=== PATIENT | female | born 1980 | race Caucasian/White ===

== ENCOUNTER 2017-06-21 21:49 | Emergency (ER) | payer OTHER ==
[~2017-06-21] VITALS: Ht 175.3 cm; Wt 142.9 kg
[~2017-06-21 21:49] MED LIST: AZIT250 PO; Allegra-D 24 H1 EACH PO; Augmentin 875-1 EACH PO; FLUT44OIA; Flonase 0.05% N16 GM; Flovent Disku100 MCG IH; HYDR1TAB94 PO; IBUP800 PO; LOSA50 PO; MONT10T PO; OXYACE5T PO; Sprintec1 EACH PO
[2017-06-21] MEDS ORDERED: BENZ100A PO (22:21)
[2017-12-31] MEDS ORDERED: Flonase 0.05% N16 GM (11:03)
[2017-12-31] MEDS ORDERED: ACIDOPHILUS1 EAC2 (11:04)
[2017-12-31] MEDS ORDERED: VITAMIN D35000 UNIT (11:04)
[2017-12-31] MEDS ORDERED: ALBU90OI (11:04)
[2017-12-31] MEDS ORDERED: Multivitamin1 EAC1 (11:05)
[2017-12-31] MEDS ORDERED: Ferrous Sulfat324 MG (11:05)
== END 2017-06-21 22:25 | disposition home or self-care (01) ==
LOC: ER 21:49
DX: J06.9 Acute upper respiratory infection, unspecified (principal); I10 Essential (primary) hypertension; Z91.013 Allergy to seafood; Z88.8 Allergy status to other drugs, medicaments and biological substances; Z79.899 Other long term (current) drug therapy; Z87.891 Personal history of nicotine dependence
CPT/HCPCS: 99282

== ENCOUNTER → 2017-08-21 | Outpatient (CLI) | payer OTHER ==
[~2017-08-21] MED LIST changes: +ACIDOPHILUS1 EAC2; +ALBU90OI; +BENZ100A PO; +Ferrous Sulfat324 MG; +Flovent 110 MCG12 GM INH; +Lomotil Tablet1 EACH PO; +Multivitamin1 EAC1; +Pepcid40 MG PO; +VITAMIN D35000 UNIT; +Zofran Odt4 MG SL
[2017-08-23 13:55] LABS: HPV Genotype 16 Not Detected (NOTDET); HPV Genotype 18 Not Detected (NOTDET)
[2017-08-27 16:31] LABS: HPV High Risk Other Not Detected (NOTDET)
== END | disposition home or self-care (01) ==
LOC: LAB 15:22
PROVIDERS: Obstetrics & Gynecology
DX: Z01.419 Encounter for gynecological examination (general) (routine) without abnormal findings (principal)
CPT/HCPCS: 87624; G0123

== ENCOUNTER 2017-10-19 09:07 | Emergency (ER) | payer OTHER ==
[~2017-10-19] VITALS: Ht 175.3 cm; Wt 142.9 kg
[~2017-10-19 09:07] MED LIST changes: -ACIDOPHILUS1 EAC2; -ALBU90OI; -Ferrous Sulfat324 MG; -Flovent 110 MCG12 GM INH; -Lomotil Tablet1 EACH PO; -Multivitamin1 EAC1; -Pepcid40 MG PO; -VITAMIN D35000 UNIT; -Zofran Odt4 MG SL
[2017-10-19 09:58] LABS: BASOPHILS ABSOLUTE AUTO 0.03 K/mm3 (0.00-0.23); BASOPHILS PERCENT AUTO 0 % (0-2); EOSINOPHILS PERCENT AUTO 1 % (0-6); Hematocrit 38.4 % (33.0-51.0); Hemoglobin 12.4 g/dL (11.5-16.0); IMMATURE GRAN ABSOLUTE AUTO 0.05 K/mm3 (0.00-0.10); IMMATURE GRAN PERCENT AUTO 0 % (0-1); LYMPHOCYTES ABSOLUTE AUTO 1.09 K/mm3 (0.84-5.20); LYMPHOCYTES PERCENT AUTO 7 % (21-46); MONOCYTES ABSOLUTE AUTO 0.67 K/mm3 (0.16-1.47); MONOCYTES PERCENT AUTO 5 % (4-13); Mean Corpuscular HGB 27.3 pg (26.0-34.0); Mean Corpuscular HGB Conc 32.3 g/dL (31.5-36.5); Mean Corpuscular Volume 84 fL (80-100); Mean Platelet Volume 9.1 fL (9.1-12.4); NEUTROPHILS ABSOLUTE AUTO 12.85 K/mm3 (1.96-9.15); NEUTROPHILS PERCENT AUTO 87 % (41-73); Platelet Count 306 K/mm3 (150-400); RDW Coefficient Variation 14.6 % (11.7-14.2); RDW Standard Deviation 44.1 fL (35.1-46.3); Red Blood Cell Count 4.55 M/mm3 (3.80-5.20); White Blood Cell Count 14.79 K/mm3 (4.00-11.30)
[2017-10-19 10:19] LABS: Alanine Aminotransfer (ALT/SGP 40 U/L (12-78); Albumin, Blood 3.6 g/dL (3.4-5.0); Albumin/Globulin Ratio 0.8 (0.8-1.8); Alk Phos 105 U/L (50-136); Anion Gap 10 mmol/L (6-16); Aspartate Aminotrans (AST/SGOT 38 U/L (12-37); Bilirubin, Total 0.5 mg/dL (0.1-1.0); Blood Urea Nitrogen 21 mg/dL (8-24); Bun/Creatinine Ratio 29.3 (12.0-20.0); CO2, Blood 24 mmol/L (21-32); Calcium, Blood 9.1 mg/dL (8.5-10.1); Chloride, Blood 104 mmol/L (98-108); Creatinine, Blood 0.72 mg/dL (0.40-1.00); Globulin, Blood 4.7 g/dL (2.2-4.0); Glomerular Filtration Rate >60 (60-); Glucose, Blood 168 mg/dL (70-99); Sodium, Blood 138 mmol/L (136-145); Total Protein, Blood 8.3 g/dL (6.4-8.2)
[2017-10-19] MEDS ORDERED: Lomotil Tablet1 EACH PO (11:42)
[2017-10-19] MEDS ORDERED: Zofran Odt4 MG SL (11:42)
[2017-10-19] MEDS ORDERED: Pepcid40 MG PO (11:42)
== END 2017-10-19 12:07 | disposition home or self-care (01) ==
LOC: ER 09:07
PROVIDERS: Emergency Medicine
DX: K52.9 Noninfective gastroenteritis and colitis, unspecified (principal); E86.0 Dehydration; I10 Essential (primary) hypertension; Z91.013 Allergy to seafood; Z91.018 Allergy to other foods; Z79.899 Other long term (current) drug therapy; Z87.891 Personal history of nicotine dependence
CPT/HCPCS: 36415; 80053; 85025; 96361; 96374; 96375; 99283; J2405; J3490; J7030

== ENCOUNTER → 2017-10-23 | Outpatient (CLI) | payer OTHER ==
[~2017-10-23] MED LIST changes: +Lomotil Tablet1 EACH PO; +Pepcid40 MG PO; +Zofran Odt4 MG SL
== END | disposition home or self-care (01) ==
LOC: OLS 16:20 → LAB SHORT 16:20
DX: A09 Infectious gastroenteritis and colitis, unspecified (principal)
CPT/HCPCS: 87015; 87045; 87046; 87205; 87899

== ENCOUNTER 2018-02-04 10:00 | Day surgery (SDC) | payer OTHER ==
[~2018-02-04] VITALS: Ht 175.3 cm; Wt 138.3 kg
[~2018-02-04 10:00] MED LIST changes: +ACIDOPHILUS1 EAC2; +ALBU90OI; +Ferrous Sulfat324 MG; +Multivitamin1 EAC1; +VITAMIN D35000 UNIT
== END 2018-02-04 12:00 | disposition home or self-care (01) ==
LOC: ORSCSDS 10:00
PROVIDERS: Internal Medicine Gastroenterology
PROC: 0DBN8ZX Excision of Sigmoid Colon, Via Natural or Artificial Opening Endoscopic, Diagnostic (ICD-10-PCS; principal; 2018-02-04 11:15)
DX: K62.5 Hemorrhage of anus and rectum (principal); D17.9 Benign lipomatous neoplasm, unspecified; K64.1 Second degree hemorrhoids; K57.30 Diverticulosis of large intestine without perforation or abscess without bleeding; Z83.71 Family history of colonic polyps; I10 Essential (primary) hypertension; G47.33 Obstructive sleep apnea (adult) (pediatric); J45.909 Unspecified asthma, uncomplicated; E78.5 Hyperlipidemia, unspecified; Z79.899 Other long term (current) drug therapy; E66.01 Morbid (severe) obesity due to excess calories; Z68.42 Body mass index [BMI] 45.0-49.9, adult
CPT/HCPCS: J2250; J2370; J2405; J7120

== ENCOUNTER 2018-02-20 15:55 | Inpatient (IN) | payer OTHER ==
[~2018-02-20] VITALS: Ht 175.3 cm; Wt 141.0 kg
[2018-02-20 16:31] LABS: BASOPHILS ABSOLUTE AUTO 0.03 K/mm3 (0.00-0.23); BASOPHILS PERCENT AUTO 0 % (0-2); EOSINOPHILS ABSOLUTE AUTO 0.11 K/mm3 (0.00-0.68); EOSINOPHILS PERCENT AUTO 1 % (0-6); Hematocrit 36.8 % (33.0-51.0); Hemoglobin 11.5 g/dL (11.5-16.0); IMMATURE GRAN ABSOLUTE AUTO 0.05 K/mm3 (0.00-0.10); IMMATURE GRAN PERCENT AUTO 0 % (0-1); LYMPHOCYTES ABSOLUTE AUTO 3.06 K/mm3 (0.84-5.20); LYMPHOCYTES PERCENT AUTO 23 % (21-46); MONOCYTES ABSOLUTE AUTO 0.49 K/mm3 (0.16-1.47); MONOCYTES PERCENT AUTO 4 % (4-13); Mean Corpuscular HGB 26.6 pg (26.0-34.0); Mean Corpuscular HGB Conc 31.3 g/dL (31.5-36.5); Mean Corpuscular Volume 85 fL (80-100); NEUTROPHILS PERCENT AUTO 72 % (41-73); Platelet Count 381 K/mm3 (150-400); RDW Coefficient Variation 14.3 % (11.7-14.2); RDW Standard Deviation 44.4 fL (35.1-46.3); Red Blood Cell Count 4.32 M/mm3 (3.80-5.20); White Blood Cell Count 13.14 K/mm3 (4.00-11.30)
[2018-02-20 17:11] LABS: Alanine Aminotransfer (ALT/SGP 40 U/L (12-78); Albumin, Blood 3.6 g/dL (3.4-5.0); Albumin/Globulin Ratio 0.8 (0.8-1.8); Alk Phos 115 U/L (50-136); Anion Gap 10 mmol/L (6-16); Aspartate Aminotrans (AST/SGOT 32 U/L (12-37); Bilirubin, Total 0.4 mg/dL (0.1-1.0); Blood Urea Nitrogen 13 mg/dL (8-24); Bun/Creatinine Ratio 18.1 (12.0-20.0); CO2, Blood 24 mmol/L (21-32); Calcium, Blood 9.2 mg/dL (8.5-10.1); Chloride, Blood 103 mmol/L (98-108); Creatinine, Blood 0.72 mg/dL (0.40-1.00); Globulin, Blood 4.8 g/dL (2.2-4.0); Glomerular Filtration Rate >60 (60-); Glucose, Blood 168 mg/dL (70-99); Potassium, Blood 3.9 mmol/L (3.5-5.5); Sodium, Blood 137 mmol/L (136-145); Total Protein, Blood 8.4 g/dL (6.4-8.2)
[2018-02-20] MEDS ORDERED: Flovent 110 MCG12 GM INH (21:08)
[2018-02-21 04:59] LABS: BASOPHILS ABSOLUTE AUTO 0.03 K/mm3 (0.00-0.23); BASOPHILS PERCENT AUTO 0 % (0-2); EOSINOPHILS ABSOLUTE AUTO 0.15 K/mm3 (0.00-0.68); EOSINOPHILS PERCENT AUTO 1 % (0-6); Hematocrit 31.8 % (33.0-51.0); Hemoglobin 10.3 g/dL (11.5-16.0); IMMATURE GRAN ABSOLUTE AUTO 0.05 K/mm3 (0.00-0.10); IMMATURE GRAN PERCENT AUTO 0 % (0-1); LYMPHOCYTES ABSOLUTE AUTO 2.99 K/mm3 (0.84-5.20); LYMPHOCYTES PERCENT AUTO 23 % (21-46); MONOCYTES ABSOLUTE AUTO 0.51 K/mm3 (0.16-1.47); MONOCYTES PERCENT AUTO 4 % (4-13); Mean Corpuscular HGB 27.8 pg (26.0-34.0); Mean Corpuscular HGB Conc 32.4 g/dL (31.5-36.5); Mean Corpuscular Volume 86 fL (80-100); NEUTROPHILS ABSOLUTE AUTO 9.03 K/mm3 (1.96-9.15); NEUTROPHILS PERCENT AUTO 71 % (41-73); Platelet Count 283 K/mm3 (150-400); RDW Coefficient Variation 14.4 % (11.7-14.2); Red Blood Cell Count 3.71 M/mm3 (3.80-5.20); White Blood Cell Count 12.76 K/mm3 (4.00-11.30)
[2018-02-21 05:18] LABS: Alanine Aminotransfer (ALT/SGP 32 U/L (12-78); Albumin/Globulin Ratio 0.7 (0.8-1.8); Alk Phos 93 U/L (50-136); Anion Gap 8 mmol/L (6-16); Aspartate Aminotrans (AST/SGOT 22 U/L (12-37); Bilirubin, Total 0.3 mg/dL (0.1-1.0); Blood Urea Nitrogen 10 mg/dL (8-24); CO2, Blood 26 mmol/L (21-32); Calcium, Blood 8.5 mg/dL (8.5-10.1); Chloride, Blood 106 mmol/L (98-108); Creatinine, Blood 0.71 mg/dL (0.40-1.00); Globulin, Blood 4.4 g/dL (2.2-4.0); Glomerular Filtration Rate >60 (60-); Glucose, Blood 122 mg/dL (70-99); Potassium, Blood 4.1 mmol/L (3.5-5.5); Sodium, Blood 140 mmol/L (136-145); Total Protein, Blood 7.4 g/dL (6.4-8.2)
[2018-02-22 05:50] LABS: BASOPHILS ABSOLUTE AUTO 0.01 K/mm3 (0.00-0.23); BASOPHILS PERCENT AUTO 0 % (0-2); EOSINOPHILS PERCENT AUTO 0 % (0-6); Hematocrit 31.6 % (33.0-51.0); IMMATURE GRAN ABSOLUTE AUTO 0.05 K/mm3 (0.00-0.10); IMMATURE GRAN PERCENT AUTO 0 % (0-1); LYMPHOCYTES ABSOLUTE AUTO 1.15 K/mm3 (0.84-5.20); LYMPHOCYTES PERCENT AUTO 9 % (21-46); MONOCYTES ABSOLUTE AUTO 0.39 K/mm3 (0.16-1.47); MONOCYTES PERCENT AUTO 3 % (4-13); Mean Corpuscular HGB Conc 31.6 g/dL (31.5-36.5); Mean Corpuscular Volume 85 fL (80-100); Mean Platelet Volume 9.1 fL (9.1-12.4); NEUTROPHILS ABSOLUTE AUTO 11.63 K/mm3 (1.96-9.15); NEUTROPHILS PERCENT AUTO 88 % (41-73); Platelet Count 317 K/mm3 (150-400); RDW Coefficient Variation 14.1 % (11.7-14.2); White Blood Cell Count 13.23 K/mm3 (4.00-11.30)
[2018-02-22 06:41] LABS: Alanine Aminotransfer (ALT/SGP 72 U/L (12-78); Albumin, Blood 3.1 g/dL (3.4-5.0); Albumin/Globulin Ratio 0.7 (0.8-1.8); Alk Phos 98 U/L (50-136); Anion Gap 10 mmol/L (6-16); Aspartate Aminotrans (AST/SGOT 86 U/L (12-37); Bilirubin, Total 0.5 mg/dL (0.1-1.0); Blood Urea Nitrogen 8 mg/dL (8-24); Bun/Creatinine Ratio 12.3 (12.0-20.0); CO2, Blood 24 mmol/L (21-32); Calcium, Blood 8.4 mg/dL (8.5-10.1); Chloride, Blood 104 mmol/L (98-108); Creatinine, Blood 0.65 mg/dL (0.40-1.00); Globulin, Blood 4.3 g/dL (2.2-4.0); Glomerular Filtration Rate >60 (60-); Glucose, Blood 207 mg/dL (70-99); Potassium, Blood 4.3 mmol/L (3.5-5.5); Sodium, Blood 138 mmol/L (136-145); Total Protein, Blood 7.4 g/dL (6.4-8.2)
[2018-02-22] MEDS ORDERED: HYDR1TAB94 PO (15:08)
== END 2018-02-22 15:36 | disposition home or self-care (01) | DRG 418 ==
LOC: ER 15:55 → SURS 20:03
PROVIDERS: Emergency Medicine; Surgery
PROC: BF131ZZ Fluoroscopy of Gallbladder and Bile Ducts using Low Osmolar Contrast (ICD-10-PCS; 2018-02-21)
PROC: 0FT44ZZ Resection of Gallbladder, Percutaneous Endoscopic Approach (ICD-10-PCS; principal; 2018-02-21 12:45)
PROC: 0WQF4ZZ Repair Abdominal Wall, Percutaneous Endoscopic Approach (ICD-10-PCS; 2018-02-21 12:45)
DX: K85.10 Biliary acute pancreatitis without necrosis or infection (principal); Z68.42 Body mass index [BMI] 45.0-49.9, adult; E66.9 Obesity, unspecified; K80.20 Calculus of gallbladder without cholecystitis without obstruction; K42.9 Umbilical hernia without obstruction or gangrene; J45.909 Unspecified asthma, uncomplicated; I10 Essential (primary) hypertension; Z91.013 Allergy to seafood; Z91.018 Allergy to other foods; I25.2 Old myocardial infarction; Z79.899 Other long term (current) drug therapy
CPT/HCPCS: 36415; 74300; 76705; 80053; 81025; 83690; 85025; 93005; 93010; 96361; 96365; 96375; 96376; 99285-25; J0295; J1100; J1885; J2001; J2250; J2405; J2710; J3010; J7030; J7120

== ENCOUNTER → 2018-11-11 | Outpatient (CLI) | payer OTHER ==
[~2018-11-11] MED LIST changes: +Flovent 110 MCG12 GM INH
[2018-11-13 15:06] LABS: HPV 16 Negative (Negative); HPV 18 Negative (Negative); HPV OTHER HR TYPES Negative (Negative)
== END | disposition home or self-care (01) ==
LOC: LAB 11:44 → LAB SHORT 11:44
PROVIDERS: Nurse Practitioner Obstetrics & Gynecology
DX: Z01.419 Encounter for gynecological examination (general) (routine) without abnormal findings (principal)
CPT/HCPCS: 87624; G0123

== ENCOUNTER → 2019-03-16 | Outpatient (CLI) | payer OTHER | END | disposition home or self-care (01) | LOC: LAB SHORT 13:37 → PLD 13:37 | DX: N92.0 Excessive and frequent menstruation with regular cycle (principal) | CPT/HCPCS: 88305 ==

== ENCOUNTER 2019-05-17 08:22 | Day surgery (SDC) | payer OTHER ==
[~2019-05-17] VITALS: Ht 175.3 cm; Wt 129.8 kg
[~2019-05-17 08:22] MED LIST changes: +ACIDOPHILUS1 EAC3 PO; +ALBU90OI INH; +Adipex-P37.5 M1 PO; +IRON TABS PO; +LEVSOD50 PO; +METF500C PO; +THERA1 EACH PO; +VITAMIN D31000 UNI3 PO
--- NOTE | 2019-05-17 09:00 | NUR ---
Ambulatory in Day Surgery History, Chart, Medications and Allergies reviewed before start of procedure.Lungs clear T/O to Auscultation-TIGHT THROUGH OUT.DUO NEB GIVEN. Patient confirms NPO status and agrees with scheduled surgery. Patient reports completing Chlorhexadine shower X2 prior to admission to hospital.Surgical site prepped with 2% Chlorhexidine cloth wipe.
--- NOTE | 2019-05-17 11:00 | NUR ---
05/17/19 1100 Philipp Espinoza CONLEY CATHETER PLACED PER JASMEET DINERO
--- NOTE | 2019-05-17 18:57 | NUR ---
post vss and complete, pt a/0 x 4, pleasant/cooperative, states pain controlled per mar. elizabeth patent and draining clear yellow urine. pt tolerated PO intake with no n/v. pt's with pt post op.
[2019-05-18 04:06] LABS: BASOPHILS ABSOLUTE AUTO 0.01 K/mm3 (0.00-0.23); BASOPHILS PERCENT AUTO 0 % (0-2); EOSINOPHILS ABSOLUTE AUTO 0.01 K/mm3 (0.00-0.68); EOSINOPHILS PERCENT AUTO 0 % (0-6); Hemoglobin 9.6 g/dL (11.5-16.0); IMMATURE GRAN ABSOLUTE AUTO 0.08 K/mm3 (0.00-0.10); IMMATURE GRAN PERCENT AUTO 1 % (0-1); LYMPHOCYTES ABSOLUTE AUTO 2.47 K/mm3 (0.84-5.20); LYMPHOCYTES PERCENT AUTO 17 % (21-46); MONOCYTES ABSOLUTE AUTO 0.81 K/mm3 (0.16-1.47); MONOCYTES PERCENT AUTO 6 % (4-13); Mean Corpuscular Volume 87 fL (80-100); Mean Platelet Volume 9.3 fL (9.1-12.4); NEUTROPHILS ABSOLUTE AUTO 11.04 K/mm3 (1.96-9.15); NEUTROPHILS PERCENT AUTO 77 % (41-73); Platelet Count 375 K/mm3 (150-400); RDW Coefficient Variation 14.5 % (11.7-14.2); RDW Standard Deviation 45.7 fL (35.1-46.3); Red Blood Cell Count 3.56 M/mm3 (3.80-5.20); White Blood Cell Count 14.42 K/mm3 (4.00-11.30)
--- NOTE | 2019-05-18 05:52 | NUR ---
POD 1 S/P LAVH. PT VSS T/O NIGHT. STERI STRIPS CDI, PT HAVING SMALL AMT VAGINAL BLEEDING. PAIN MGD W/PO PAIN MEDS+TORADOL W/REP RELIEF. PT MAIN REG PO, NO C/O N/V. PT AMB IN HALLS W/SBA, MAIN WELL. PLAN TO D/C CONLEY CATH THIS AM. PT USING CALL LIGHT FOR ASSISTANCE, WILL CONT TO MONITOR UNTIL REP GIVEN TO ONCOMING RN.
[2019-05-18] MEDS ORDERED: ACET325 PO (10:51)
[2019-05-18] MEDS ORDERED: COLACE100 MG PO (10:52)
[2019-05-18] MEDS ORDERED: IBUP800 PO (10:54)
[2019-05-18] MEDS ORDERED: Percocet 5-3251 EACH PO (10:55)
--- NOTE | 2019-05-18 14:46 | NUR ---
DISCHARGE: PACKET PRINTED AND PT EDUCATED ABOUT HOME CARE AFTER DISCHARGE AND FOLLOW UP. NO SCRIPTS NEEDED, PREVIOUSLY FILLED. PT LEFT UNIT VIA WHEELCHAIR WITH WANDA ARORA AT ABOUT 1230
== END 2019-05-18 12:53 | disposition home or self-care (01) ==
LOC: ORSCMMR 08:22 → ORD 09:45 → SURS 13:44 → ORSCMMR 05-18 12:53
PROVIDERS: Obstetrics & Gynecology
PROC: 0UT9FZZ Resection of Uterus, Via Natural or Artificial Opening With Percutaneous Endoscopic Assistance (ICD-10-PCS; principal; 2019-05-17 09:45)
PROC: 0UT0FZZ Resection of Right Ovary, Via Natural or Artificial Opening With Percutaneous Endoscopic Assistance (ICD-10-PCS; principal; 2019-05-17 09:45)
DX: N92.0 Excessive and frequent menstruation with regular cycle (principal); D50.9 Iron deficiency anemia, unspecified; N94.6 Dysmenorrhea, unspecified; N83.11 Corpus luteum cyst of right ovary; I10 Essential (primary) hypertension; G47.33 Obstructive sleep apnea (adult) (pediatric); E11.9 Type 2 diabetes mellitus without complications; J45.909 Unspecified asthma, uncomplicated; E78.5 Hyperlipidemia, unspecified; E66.01 Morbid (severe) obesity due to excess calories; Z68.41 Body mass index [BMI] 40.0-44.9, adult; Z79.899 Other long term (current) drug therapy; Z79.84 Long term (current) use of oral hypoglycemic drugs
CPT/HCPCS: 36415; 82947; 85025; 88307; J0690; J1100; J1170; J1885; J2250; J2405; J2704; J3010; J7030; J7120

== ENCOUNTER 2019-05-21 22:19 | Emergency (ER) | payer OTHER ==
[~2019-05-21] VITALS: Ht 175.3 cm; Wt 130.6 kg
[~2019-05-21 22:19] MED LIST changes: +ACET325 PO; +COLACE100 MG PO; +Percocet 5-3251 EACH PO
[2019-05-21 23:00] LABS: BASOPHILS ABSOLUTE AUTO 0.02 K/mm3 (0.00-0.23); BASOPHILS PERCENT AUTO 0 % (0-2); EOSINOPHILS PERCENT AUTO 2 % (0-6); Hematocrit 29.9 % (33.0-51.0); Hemoglobin 9.3 g/dL (11.5-16.0); IMMATURE GRAN ABSOLUTE AUTO 0.04 K/mm3 (0.00-0.10); IMMATURE GRAN PERCENT AUTO 0 % (0-1); LYMPHOCYTES ABSOLUTE AUTO 2.47 K/mm3 (0.84-5.20); LYMPHOCYTES PERCENT AUTO 22 % (21-46); MONOCYTES ABSOLUTE AUTO 0.59 K/mm3 (0.16-1.47); MONOCYTES PERCENT AUTO 5 % (4-13); Mean Corpuscular HGB 27.4 pg (26.0-34.0); Mean Corpuscular HGB Conc 31.1 g/dL (31.5-36.5); Mean Corpuscular Volume 88 fL (80-100); Mean Platelet Volume 9.3 fL (9.1-12.4); NEUTROPHILS ABSOLUTE AUTO 7.79 K/mm3 (1.96-9.15); NEUTROPHILS PERCENT AUTO 70 % (41-73); Platelet Count 345 K/mm3 (150-400); RDW Coefficient Variation 14.5 % (11.7-14.2); RDW Standard Deviation 46.3 fL (35.1-46.3); Red Blood Cell Count 3.39 M/mm3 (3.80-5.20); White Blood Cell Count 11.11 K/mm3 (4.00-11.30)
[2019-05-21 23:17] LABS: Alanine Aminotransfer (ALT/SGP 62 U/L (12-78); Albumin, Blood 3.3 g/dL (3.4-5.0); Albumin/Globulin Ratio 0.7 (0.8-1.8); Alk Phos 105 U/L (50-136); Anion Gap 8 mmol/L (6-16); Aspartate Aminotrans (AST/SGOT 49 U/L (12-37); Bilirubin, Total 0.4 mg/dL (0.1-1.0); Blood Urea Nitrogen 13 mg/dL (8-24); Bun/Creatinine Ratio 16.8 (12.0-20.0); CO2, Blood 28 mmol/L (21-32); Calcium, Blood 9.1 mg/dL (8.5-10.1); Chloride, Blood 103 mmol/L (98-108); Creatinine, Blood 0.77 mg/dL (0.40-1.00); Globulin, Blood 4.6 g/dL (2.2-4.0); Glomerular Filtration Rate >60 (60-); Glucose, Blood 152 mg/dL (70-99); Potassium, Blood 3.9 mmol/L (3.5-5.5); Sodium, Blood 139 mmol/L (136-145); Total Protein, Blood 7.9 g/dL (6.4-8.2)
[2019-05-21 23:38] LABS: Magnesium, Blood 1.8 mg/dL (1.6-2.4)
[2019-05-22 00:17] LABS: Source, Urine Clean Catch
[2019-05-22 00:35] LABS: Appearance, Urine Clear (Clear); Bilirubin, Urine Neg (Neg); Blood, Urine 1+ (Neg); Color, Urine Yellow (P-Yellow); Glucose Qualitative, Urine Neg (Neg); Ketones, Urine Neg (Neg); Leukocyte Esterase, Urine Neg (Neg); Nitrite, Urine Neg (Neg); Protein, Urine Neg (Neg); Urobilinogen, Urine NORM (Normal); pH, Urine 6.5 (5.0-8.0)
[2019-05-22 01:15] LABS: Bacteria Rare /hpf; Red Blood Cells, Urine 0-2 /hpf (0-2); Squamous Epithelial Cells Few /hpf (Few); White Blood Cells, Urine 0-2 /hpf (0-5)
== END 2019-05-22 02:15 | disposition home or self-care (01) ==
LOC: ER 22:19
PROVIDERS: Emergency Medicine
DX: L76.32 Postprocedural hematoma of skin and subcutaneous tissue following other procedure (principal); G89.18 Other acute postprocedural pain; R10.9 Unspecified abdominal pain; I10 Essential (primary) hypertension; I25.2 Old myocardial infarction; Z90.710 Acquired absence of both cervix and uterus
CPT/HCPCS: 36415; 74176; 80053; 81001; 83690; 83735; 84145; 85025; 96374; 96375; 99284-25; J1170; J2405

== ENCOUNTER 2020-04-21 21:59 | Emergency (ER) | payer OTHER ==
[~2020-04-21] VITALS: Ht 175.3 cm; Wt 130.9 kg
[2020-04-21 23:09] LABS: BASOPHILS ABSOLUTE AUTO 0.03 K/mm3 (0.00-0.23); BASOPHILS PERCENT AUTO 0 % (0-2); EOSINOPHILS ABSOLUTE AUTO 0.12 K/mm3 (0.00-0.68); EOSINOPHILS PERCENT AUTO 1 % (0-6); Hemoglobin 10.5 g/dL (11.5-16.0); IMMATURE GRAN ABSOLUTE AUTO 0.04 K/mm3 (0.00-0.10); IMMATURE GRAN PERCENT AUTO 0 % (0-1); LYMPHOCYTES ABSOLUTE AUTO 3.31 K/mm3 (0.84-5.20); LYMPHOCYTES PERCENT AUTO 23 % (21-46); MONOCYTES ABSOLUTE AUTO 0.82 K/mm3 (0.16-1.47); MONOCYTES PERCENT AUTO 6 % (4-13); Mean Corpuscular HGB 27.6 pg (26.0-34.0); Mean Corpuscular HGB Conc 30.9 g/dL (31.5-36.5); Mean Corpuscular Volume 90 fL (80-100); Mean Platelet Volume 9.1 fL (9.1-12.4); NEUTROPHILS ABSOLUTE AUTO 9.97 K/mm3 (1.96-9.15); NEUTROPHILS PERCENT AUTO 70 % (41-73); Platelet Count 305 K/mm3 (150-400); RDW Coefficient Variation 13.7 % (11.7-14.2); RDW Standard Deviation 44.9 fL (35.1-46.3); White Blood Cell Count 14.29 K/mm3 (4.00-11.30)
[2020-04-21 23:17] LABS: Source, Urine Clean Catch
[2020-04-21 23:20] LABS: Bilirubin, Urine Neg (Neg); Blood, Urine 1+ (Neg); Glucose Qualitative, Urine Neg (Neg); Ketones, Urine Neg (Neg); Leukocyte Esterase, Urine Neg (Neg); Nitrite, Urine Neg (Neg); Protein, Urine Neg (Neg); Urobilinogen, Urine NORM (Normal)
[2020-04-21 23:27] LABS: Alanine Aminotransfer (ALT/SGP 82 U/L (12-78); Albumin, Blood 3.4 g/dL (3.4-5.0); Albumin/Globulin Ratio 0.8 (0.8-1.8); Alk Phos 90 U/L (50-136); Anion Gap 3 mmol/L (6-16); Aspartate Aminotrans (AST/SGOT 47 U/L (12-37); Bilirubin, Total 0.4 mg/dL (0.1-1.0); Blood Urea Nitrogen 12 mg/dL (8-24); Bun/Creatinine Ratio 13.7 (12.0-20.0); CO2, Blood 32 mmol/L (21-32); Calcium, Blood 8.7 mg/dL (8.5-10.1); Chloride, Blood 105 mmol/L (98-108); Creatinine, Blood 0.88 mg/dL (0.40-1.00); Globulin, Blood 4.4 g/dL (2.2-4.0); Glomerular Filtration Rate >60 (60-); Glucose, Blood 115 mg/dL (70-99); Potassium, Blood 3.8 mmol/L (3.5-5.5); Sodium, Blood 140 mmol/L (136-145); Total Protein, Blood 7.8 g/dL (6.4-8.2)
[2020-04-21 23:27] LABS: Appearance, Urine Clear (Clear); Color, Urine Yellow (P-Yellow)
[2020-04-21 23:28] LABS: Bacteria Few /hpf; Red Blood Cells, Urine 0-2 /hpf (0-2); Squamous Epithelial Cells Few /hpf (Few); White Blood Cells, Urine Rare /hpf (0-5)
[2020-04-22] MEDS ORDERED: AMOCLA875 PO (02:42)
== END 2020-04-22 03:00 | disposition home or self-care (01) ==
LOC: ER 21:59
PROVIDERS: Physician Assistant
DX: J18.9 Pneumonia, unspecified organism (principal); Z79.899 Other long term (current) drug therapy; Z79.84 Long term (current) use of oral hypoglycemic drugs
CPT/HCPCS: 74177; 80053; 81001; 85025; 96374; 96375; 99284-25; A9270; A9270-GY; J2405; J3010; Q9967

== ENCOUNTER → 2020-09-06 | Outpatient (CLI) | payer OTHER ==
[~2020-09-06] MED LIST changes: +AMOCLA875 PO
[2020-09-08 00:07] LABS: CHLAMYDIA TRACHOMATIS, NAA Negative (Negative)
== END | disposition home or self-care (01) ==
LOC: LAB EV 11:59 → LAB SHORT 11:59
PROVIDERS: Physician Assistant Medical
DX: J03.90 Acute tonsillitis, unspecified (principal); Z72.51 High risk heterosexual behavior
CPT/HCPCS: 87081; 87491; 87591

== ENCOUNTER → 2021-01-17 | Outpatient (CLI) | payer OTHER ==
[2021-01-17 16:10] LABS: Microalb/Creat Ratio UR, Rand 12.248 mg/g (0.000-30.000); Microalbumin, Random Urine 20.7 mg/L (0.000-20.000)
== END | disposition home or self-care (01) ==
LOC: LAB 12:08 → LAB SHORT 12:08
PROVIDERS: Student in an Organized Health Care Education/Training Program
DX: E11.9 Type 2 diabetes mellitus without complications (principal)
CPT/HCPCS: 82043; 82570

== ENCOUNTER 2021-02-02 16:25 | Emergency (ER) | payer OTHER | END 2021-02-02 20:05 | disposition home or self-care (01) | LOC: ER 16:25 | DX: U07.1 COVID-19 (principal); I10 Essential (primary) hypertension; Z79.899 Other long term (current) drug therapy; Z79.84 Long term (current) use of oral hypoglycemic drugs; Z79.890 Hormone replacement therapy; Z91.013 Allergy to seafood; Z91.018 Allergy to other foods | CPT/HCPCS: 99282-25; A9270; M0243; Q0243 ==

== ENCOUNTER 2021-02-03 01:33 | Emergency (ER) | payer OTHER ==
[~2021-02-03] VITALS: Ht 175.3 cm; Wt 119.3 kg
== END 2021-02-03 04:30 | disposition home or self-care (01) ==
LOC: ER 01:33
DX: U07.1 COVID-19 (principal); J45.909 Unspecified asthma, uncomplicated; I10 Essential (primary) hypertension; R06.82 Tachypnea, not elsewhere classified; E03.9 Hypothyroidism, unspecified; E11.9 Type 2 diabetes mellitus without complications; Z91.013 Allergy to seafood; Z91.018 Allergy to other foods; Z79.899 Other long term (current) drug therapy; Z79.84 Long term (current) use of oral hypoglycemic drugs; Z79.890 Hormone replacement therapy
CPT/HCPCS: 71045; 99284-25; A9270

== ENCOUNTER 2021-05-06 09:06 | Emergency (ER) | payer OTHER ==
[~2021-05-06] VITALS: Ht 175.3 cm; Wt 117.9 kg
[2021-05-06 09:38] LABS: Source, Urine Clean Catch
[2021-05-06 09:51] LABS: BASOPHILS ABSOLUTE AUTO 0.04 K/mm3 (0.00-0.23); BASOPHILS PERCENT AUTO 0 % (0-2); Bilirubin, Urine Neg (Neg); Blood, Urine 3+ (Neg); EOSINOPHILS ABSOLUTE AUTO 0.12 K/mm3 (0.00-0.68); EOSINOPHILS PERCENT AUTO 1 % (0-6); Glucose Qualitative, Urine Neg (Neg); Hematocrit 36.5 % (33.0-51.0); Hemoglobin 11.9 g/dL (11.5-16.0); IMMATURE GRAN ABSOLUTE AUTO 0.03 K/mm3 (0.00-0.10); IMMATURE GRAN PERCENT AUTO 0 % (0-1); Ketones, Urine Neg (Neg); LYMPHOCYTES ABSOLUTE AUTO 2.62 K/mm3 (0.84-5.20); LYMPHOCYTES PERCENT AUTO 23 % (21-46); Leukocyte Esterase, Urine Neg (Neg); MONOCYTES ABSOLUTE AUTO 0.58 K/mm3 (0.16-1.47); MONOCYTES PERCENT AUTO 5 % (4-13); Mean Corpuscular HGB Conc 32.6 g/dL (31.5-36.5); Mean Corpuscular Volume 89 fL (80-100); Mean Platelet Volume 9.3 fL (9.1-12.4); NEUTROPHILS PERCENT AUTO 70 % (41-73); Nitrite, Urine Neg (Neg); Platelet Count 328 K/mm3 (150-400); Protein, Urine Neg (Neg); RDW Coefficient Variation 13.2 % (11.7-14.2); RDW Standard Deviation 42.9 fL (35.1-46.3); Specific Gravity, Urine 1.025 (1.003-1.022); Urobilinogen, Urine NORM (Normal); White Blood Cell Count 11.39 K/mm3 (4.00-11.30)
[2021-05-06 09:56] LABS: Appearance, Urine Clear (Clear); Color, Urine Yellow (P-Yellow)
[2021-05-06 09:59] LABS: Bacteria Rare /hpf; Red Blood Cells, Urine 0-2 /hpf (0-2); Squamous Epithelial Cells Few /hpf (Few); White Blood Cells, Urine 0-2 /hpf (0-5)
[2021-05-06 10:25] LABS: Alanine Aminotransfer (ALT/SGP 26 U/L (12-78); Albumin, Blood 3.4 g/dL (3.4-5.0); Albumin/Globulin Ratio 0.7 (0.8-1.8); Alk Phos 92 U/L (50-136); Anion Gap 6 mmol/L (6-16); Aspartate Aminotrans (AST/SGOT 20 U/L (12-37); Bilirubin, Total 0.3 mg/dL (0.1-1.0); Blood Urea Nitrogen 13 mg/dL (8-24); Bun/Creatinine Ratio 18.7 (12.0-20.0); CO2, Blood 26 mmol/L (21-32); Calcium, Blood 9.2 mg/dL (8.5-10.1); Chloride, Blood 107 mmol/L (98-108); Globulin, Blood 4.7 g/dL (2.2-4.0); Glomerular Filtration Rate >60 (60-); Glucose, Blood 122 mg/dL (70-99); Sodium, Blood 139 mmol/L (136-145); Total Protein, Blood 8.1 g/dL (6.4-8.2)
[2021-05-06] MEDS ORDERED: HYDR1TAB94 PO (11:56)
[2021-05-06] MEDS ORDERED: Zofran4 MG PO (12:43)
== END 2021-05-06 12:48 | disposition home or self-care (01) ==
LOC: ER 09:06
PROVIDERS: Emergency Medicine
DX: N83.292 Other ovarian cyst, left side (principal); I10 Essential (primary) hypertension; J45.909 Unspecified asthma, uncomplicated; E11.9 Type 2 diabetes mellitus without complications; I25.2 Old myocardial infarction; Z88.8 Allergy status to other drugs, medicaments and biological substances; Z91.013 Allergy to seafood; Z79.84 Long term (current) use of oral hypoglycemic drugs; Z79.899 Other long term (current) drug therapy
CPT/HCPCS: 36415; 76830; 76856; 80053; 81001; 85025; 87086; 96374; 96375; 99284-25; J1170; J2405

== ENCOUNTER 2021-07-26 09:51 | Day surgery (SDC) | payer OTHER ==
[~2021-07-26] VITALS: Ht 175.3 cm; Wt 120.7 kg
[~2021-07-26 09:51] MED LIST changes: +Zofran4 MG PO
[2021-07-26] MEDS ORDERED: Adipex-P37.5 M1 (10:22)
[2021-07-26] MEDS ORDERED: CLOT10 MT (10:32)
[2021-07-26] MEDS ORDERED: HYDCOR2.5C PR (10:32)
[2021-07-26] MEDS ORDERED: MUPIROCIN TP (10:32)
--- NOTE | 2021-07-26 12:48 | NUR ---
07/26/21 1248 Elo Ellis 0.5% BUPIVACAINE 1:200,000 20CC TOTAL USED BY SURGEON
--- NOTE | 2021-07-26 14:41 | NUR ---
07/26/21 1441 Marian Crain @1410 IV DISCONTINUED, CATH TIP INTACT PATIENT TOLERATED WELL
== END 2021-07-26 14:25 | disposition home or self-care (01) ==
LOC: ORSCSDS 09:51
PROVIDERS: Obstetrics & Gynecology
PROC: 0UT14ZZ Resection of Left Ovary, Percutaneous Endoscopic Approach (ICD-10-PCS; principal; 2021-07-26 12:00)
DX: N83.292 Other ovarian cyst, left side (principal); R10.2 Pelvic and perineal pain; K66.0 Peritoneal adhesions (postprocedural) (postinfection); J45.909 Unspecified asthma, uncomplicated; G47.33 Obstructive sleep apnea (adult) (pediatric); F32.A Depression, unspecified; E66.01 Morbid (severe) obesity due to excess calories; Z68.39 Body mass index [BMI] 39.0-39.9, adult
CPT/HCPCS: 82947; 88305; A9270; J0171; J1100; J1885; J2250; J2405; J2550; J2704; J3010; J7120

== ENCOUNTER → 2021-11-08 | Outpatient (CLI) | payer OTHER ==
[~2021-11-08] MED LIST changes: +Adipex-P37.5 M1; +CLOT10 MT; +HYDCOR2.5C PR; +MUPIROCIN TP
[2021-11-10 11:11] LABS: CHLAMYDIA TRACHOMATIS, NAA Negative (Negative)
== END | disposition home or self-care (01) ==
LOC: LAB 17:00 → LAB SHORT 17:00
PROVIDERS: Obstetrics & Gynecology
DX: Z11.3 Encounter for screening for infections with a predominantly sexual mode of transmission (principal); Z91.89 Other specified personal risk factors, not elsewhere classified
CPT/HCPCS: 87491; 87591

== ENCOUNTER 2021-11-15 20:30 | Emergency (ER) | payer OTHER ==
[~2021-11-15] VITALS: Ht 175.3 cm; Wt 119.3 kg
[2021-11-16] MEDS ORDERED: SYNTHROID75 MCG PO (00:09)
[2021-11-16] MEDS ORDERED: ESTRADIOL1 M1 PO (00:10)
[2021-11-16] MEDS ORDERED: IBU800 MG PO (00:26)
== END 2021-11-16 00:30 | disposition home or self-care (01) ==
LOC: ER 20:30
DX: S53.402A Unspecified sprain of left elbow, initial encounter (principal); X50.1XXA Overexertion from prolonged static or awkward postures, initial encounter; I10 Essential (primary) hypertension; J45.909 Unspecified asthma, uncomplicated; E03.9 Hypothyroidism, unspecified; I25.2 Old myocardial infarction; E11.9 Type 2 diabetes mellitus without complications; Z91.013 Allergy to seafood; Z91.018 Allergy to other foods; Z79.899 Other long term (current) drug therapy
CPT/HCPCS: 73080; 99283-25; A9270

== ENCOUNTER → 2021-11-20 | Outpatient (CLI) | payer OTHER ==
[~2021-11-20] MED LIST changes: +ESTRADIOL1 M1 PO; +IBU800 MG PO; +SYNTHROID75 MCG PO
== END | disposition home or self-care (01) ==
LOC: LAB SHORT 11:12 → PLD 11:12
DX: D22.4 Melanocytic nevi of scalp and neck (principal); D22.5 Melanocytic nevi of trunk
CPT/HCPCS: 88305

== ENCOUNTER → 2021-12-12 | Outpatient (CLI) | payer OTHER | END | disposition home or self-care (01) | LOC: PLD 11:17 → LAB SHORT 11:17 | DX: D22.39 Melanocytic nevi of other parts of face (principal) | CPT/HCPCS: 88305 ==

== ENCOUNTER → 2022-01-08 | Outpatient (CLI) | payer OTHER ==
[2022-01-08 12:54] LABS: Test Name 23BPT
== END | disposition home or self-care (01) ==
LOC: LAB 07:00 → LAB SHORT 07:00 → LAB FUT 01-03 15:25
PROVIDERS: Internal Medicine
DX: J33.9 Nasal polyp, unspecified (principal); J45.41 Moderate persistent asthma with (acute) exacerbation; R21 Rash and other nonspecific skin eruption; R10.9 Unspecified abdominal pain; R09.82 Postnasal drip
CPT/HCPCS: 81050

== ENCOUNTER 2022-10-04 20:32 | Emergency (ER) | payer OTHER ==
[~2022-10-04] VITALS: Ht 170.2 cm; Wt 106.6 kg
[~2022-10-04 20:32] MED LIST changes: +AMLODIPINE BESYL5 MG PO; +CLOTRIMAZOLE10 M2 MM; +MELO7.5 PO; +OMEP20ER PO; +PROM25 PO
[2022-10-04 20:52] VITALS: BP 156/94
== END 2022-10-04 23:40 | disposition home or self-care (01) ==
LOC: ER 20:32
DX: T14.90XA Injury, unspecified, initial encounter (principal); R52 Pain, unspecified; I10 Essential (primary) hypertension; I25.2 Old myocardial infarction; E03.9 Hypothyroidism, unspecified; J45.909 Unspecified asthma, uncomplicated; Z91.013 Allergy to seafood; Z91.018 Allergy to other foods; Z79.899 Other long term (current) drug therapy; V89.2XXA Person injured in unspecified motor-vehicle accident, traffic, initial encounter
CPT/HCPCS: 72040; 99284-25

== ENCOUNTER → 2022-12-05 | Outpatient (CLI) | payer OTHER ==
[2022-12-08 04:06] LABS: CHLAMYDIA BY NAA Negative (Negative); GONOCOCCUS BY NAA Negative (Negative); TRICH VAG BY NAA Negative (Negative)
== END | disposition home or self-care (01) ==
LOC: LAB 10:41 → LAB SHORT 10:41
PROVIDERS: Obstetrics & Gynecology
DX: Z11.3 Encounter for screening for infections with a predominantly sexual mode of transmission (principal); Z91.89 Other specified personal risk factors, not elsewhere classified
CPT/HCPCS: 87491; 87591; 87661

== ENCOUNTER → 2022-12-17 | Outpatient (CLI) | payer OTHER | LOC: PLD 07:55 → LAB SHORT 07:55 | DX: L08.89 Other specified local infections of the skin and subcutaneous tissue (principal) | CPT/HCPCS: 88305 ==

== ENCOUNTER → 2023-05-10 | Outpatient (CLI) | payer BC | LOC: LAB SHORT 16:00 → LAB 16:00 | DX: J03.91 Acute recurrent tonsillitis, unspecified (principal) | CPT/HCPCS: 87081 ==

== ENCOUNTER → 2023-05-20 | Outpatient (CLI) | payer BC | LOC: LAB SHORT 09:55 → PLD 09:55 | DX: D48.5 Neoplasm of uncertain behavior of skin (principal) | CPT/HCPCS: 88304 ==

== ENCOUNTER → 2024-05-14 | Outpatient (CLI) | payer BC ==
[~2024-05-14] MED LIST changes: +AZIT500 PO
== END ==
LOC: LAB SHORT 13:07 → LAB 13:07
DX: R30.0 Dysuria (principal)
CPT/HCPCS: 87086

== ENCOUNTER → 2024-07-06 | Outpatient (CLI) | payer BC ==
[2024-07-06 18:13] LABS: BASOPHILS ABSOLUTE AUTO 0.04 K/mm3 (0.00-0.23); BASOPHILS PERCENT AUTO 0 % (0-2); EOSINOPHILS ABSOLUTE AUTO 0.12 K/mm3 (0.00-0.68); EOSINOPHILS PERCENT AUTO 1 % (0-6); Hematocrit 36.3 % (33.0-51.0); Hemoglobin 11.8 g/dL (11.5-16.0); IMMATURE GRAN ABSOLUTE AUTO 0.02 K/mm3 (0.00-0.10); IMMATURE GRAN PERCENT AUTO 0 % (0-1); LYMPHOCYTES ABSOLUTE AUTO 3.26 K/mm3 (0.84-5.20); LYMPHOCYTES PERCENT AUTO 33 % (21-46); MONOCYTES ABSOLUTE AUTO 0.38 K/mm3 (0.16-1.47); MONOCYTES PERCENT AUTO 4 % (4-13); Mean Corpuscular HGB 28.4 pg (26.0-34.0); Mean Corpuscular HGB Conc 32.5 g/dL (31.5-36.5); Mean Corpuscular Volume 87 fL (80-100); Mean Platelet Volume 8.5 fL (9.1-12.4); NEUTROPHILS ABSOLUTE AUTO 6.02 K/mm3 (1.96-9.15); NEUTROPHILS PERCENT AUTO 61 % (41-73); Platelet Count 383 K/mm3 (150-400); RDW Coefficient Variation 13.5 % (11.7-14.2); RDW Standard Deviation 43.2 fL (35.1-46.3); Red Blood Cell Count 4.16 M/mm3 (3.80-5.20); White Blood Cell Count 9.84 K/mm3 (4.00-11.30)
[2024-07-06 18:26] LABS: Albumin/Globulin Ratio 0.9 (0.8-1.8); Bilirubin, Total 0.3 mg/dL (0.1-1.0); Bun/Creatinine Ratio 14.7 (12.0-20.0); Creatinine, Blood 1.09 mg/dL (0.40-1.00); Globulin, Blood 4.5 g/dL (2.2-4.0); Total Protein, Blood 8.5 g/dL (6.4-8.2)
== END | disposition home or self-care (01) ==
LOC: LAB SHORT 18:09
PROVIDERS: Physician Assistant
DX: R10.9 Unspecified abdominal pain (principal)
CPT/HCPCS: 80053; 83690; 85025

== ENCOUNTER → 2024-12-28 | Outpatient (CLI) | payer BC | END | disposition home or self-care (01) | LOC: LAB 16:16 → LAB SHORT 16:16 | DX: J02.9 Acute pharyngitis, unspecified (principal) | CPT/HCPCS: 87081 ==

== ENCOUNTER → 2025-02-16 | Outpatient (CLI) | payer BC ==
[~2025-02-16] MED LIST changes: +AMPDEX15CR PO; +AMPDEX5 PO; +LABE100 PO; +LAMO100; +WEGOVY2.4 MG/0.7 SQ
[2025-02-16 15:35] LABS: Bacterial Vaginosis PCR Negative (NEGATIVE); Candida Group, PCR NOT DETECTED (NOT DETECT); Candida glabrata-krusei, PCR NOT DETECTED (NOT DETECT)
[2025-02-18 10:31] LABS: APTIMA MEDIA TYPE Urine; C. TRACHOMATIS BY TMA Negative (Negative); N. GONORRHOEAE BY TMA Negative (Negative)
== END ==
LOC: LAB 11:48 → LAB SHORT 11:48
PROVIDERS: Obstetrics & Gynecology
DX: Z11.3 Encounter for screening for infections with a predominantly sexual mode of transmission (principal)
CPT/HCPCS: 81515; 87491; 87591

== ENCOUNTER 2025-02-28 09:52 | Day surgery (SDC) | payer BC ==
[~2025-02-28] VITALS: Ht 175.3 cm; Wt 110.7 kg
[2025-02-28] MEDS ORDERED: MOUNJARO5 MG/0.5 M SQ (10:31)
[2025-02-28] MEDS ORDERED: Tranexamic Acid 100 ML IV ONE (10:44)
[2025-02-28] MEDS ORDERED: FentaNYL Citrate 50 MCG/ML 2 ML Injection ONE (11:00)
[2025-02-28] MEDS ORDERED: Ketorolac Tromethamine 30mg Vial ONE (11:07)
[2025-02-28] MEDS ORDERED: Ondansetron HCl 2 MG / ML 2ML Vial ONE ×2 (11:08→11:39)
[2025-02-28] MEDS ORDERED: Dexamethasone Sod Phos 10 MG/ML 1ML VIAL ONE (11:08)
[2025-02-28] MEDS ORDERED: Sugammadex Sodium 200 MG/2ML SDV (100 MG/ML) ONE (11:08)
[2025-02-28] MEDS ORDERED: Labetalol HCL 5 MG/ML 4ML Injection (Single Dose) ONE (11:13)
--- NOTE | 2025-02-28 11:44 | NUR ---
02/28/25 1144 David Maravilla ADMINISTERED ZOFRAN 4 MG IV FOR NAUSEA PER ANESTHESIA ORDER
[2025-02-28] MEDS ORDERED: Rocuronium Bromide 10 MG/ML 5ML Injection IV ONE (11:51)
[2025-02-28 12:05] VITALS: BP 120/74
--- NOTE | 2025-02-28 12:49 | NUR ---
02/28/25 1249 David Maravilla PT REPORTS MANAGEABLE LEVEL OF PAIN AND NAUSEA. PT AGREEABLE TO D/C HOME WITH SPOUSE DIONISIO.
== END 2025-02-28 12:47 | disposition home or self-care (01) ==
LOC: ORSCSDS 09:52
PROVIDERS: Otolaryngology
PROC: 0CBPXZZ Excision of Tonsils, External Approach (ICD-10-PCS; principal; 2025-02-28 11:30)
DX: J03.91 Acute recurrent tonsillitis, unspecified (principal); J35.8 Other chronic diseases of tonsils and adenoids; I10 Essential (primary) hypertension; E11.9 Type 2 diabetes mellitus without complications; E03.9 Hypothyroidism, unspecified; J45.909 Unspecified asthma, uncomplicated; I25.2 Old myocardial infarction; Z79.85 Long-term (current) use of injectable non-insulin antidiabetic drugs; Z79.899 Other long term (current) drug therapy
CPT/HCPCS: 82947; 88304; J1100; J1885; J2405; J2704; J3010; J7120